=== PATIENT | female | born 1975 | race Caucasian/White ===

== ENCOUNTER 2017-05-17 05:33 | Day surgery (SDC) | payer OTHER ==
[2017-05-11 12:01] LABS: APPEARANCE,URINE CLEAR; BILIRUBIN,URINE NEGATIVE (NEGATIVE); GLUCOSE, URINE NEGATIVE (NEGATIVE); KETONES,URINE NEGATIVE (NEGATIVE); LEUKOCYTE ESTERASE,URINE NEGATIVE (NEGATIVE); NITRITE,URINE NEGATIVE (NEGATIVE); PROTEIN,URINE NEGATIVE (NEGATIVE); URINE SPECIFIC GRAVITY 1.003; UROBILINOGEN,URINE NEGATIVE mg/dL (<2.0)
[2017-05-11 12:56] LABS: HEMOGLOBIN 12.2 g/dL (12.0-15.5); HGB HCT DIFFERENCE 1.6; MEAN CORPUSCULAR HEMOGLOBIN 30.8 pg (27.0-33.4); MEAN CORPUSCULAR HGB CONC 34.9 g/dL (32.0-36.0); MEAN CORPUSCULAR VOLUME 88 fl (80-97); RED BLOOD COUNT 3.95 10^6/uL (3.72-5.28); WHITE BLOOD COUNT 5.7 10^3/uL (4.0-10.5)
[2017-05-11 13:23] LABS: ALANINE AMINOTRANSFERASE 24 U/L (9-52); ALBUMIN 4.7 g/dL (3.5-5.0); ALKALINE PHOSPHATASE 68 U/L (38-126); ANION GAP 11 (5-19); ASPARTATE AMINO TRANSFERASE 21 U/L (14-36); BILIRUBIN,DIRECT 0.4 mg/dL (0.0-0.4); BILIRUBIN,TOTAL 0.4 mg/dL (0.2-1.3); BLOOD UREA NITROGEN 14 mg/dL (7-20); CALCIUM 9.9 mg/dL (8.4-10.2); CARBON DIOXIDE 26 mmol/L (22-30); CHLORIDE 103 mmol/L (98-107); CREATININE RESULT 0.61 mg/dL (0.52-1.25); GLUCOSE 89 mg/dL (75-110); POTASSIUM 3.7 mmol/L (3.6-5.0); SODIUM 140.3 mmol/L (137-145)
[~2017-05-17 05:33] MED LIST: CEFAZOLIN 2 GM/D5W RTU 2 GM/50 ML RTUPB IV PRN; LACTATED RINGERS 1000 ML IV PRN; LIDOCAINE 0.5% INJ-PF (5 MG/ML) 50 ML SDV SUBCUT PRN
[2017-05-17] MEDS ORDERED: FENTANYL CITRATE INJ/PF 100 MCG/2 ML AMPUL ONE ×2 (07:09→11:27)
[2017-05-17] MEDS ORDERED: FENTANYL CITRATE INJ/PF 250 MCG/5 ML AMPULE ONE (07:09)
[2017-05-17] MEDS ORDERED: PROPOFOL INJ 200 MG/20 ML VIAL IV ONE (07:09)
[2017-05-17] MEDS ORDERED: ACETAMINOPHEN 100 ML IV ONE (07:09)
[2017-05-17] MEDS ORDERED: MIDAZOLAM 2 MG/2 ML INJ ONE (07:09)
[2017-05-17] MEDS ORDERED: MORPHINE SULFATE 10 MG/ML INJ ONE (07:10)
[2017-05-17] MEDS ORDERED: BUPIVACAINE HCL 0.25 % INJ/PF (2.5 MG/1 ML) 30 ML VIAL ONE (07:22)
[2017-05-17] MEDS ORDERED: METHYLENE BLUE 50 MG/10 ML AMPULE ONE (07:22)
[2017-05-17] MEDS ORDERED: MORPHINE SULFATE 10 MG/ML INJ IV PRN (08:22)
[2017-05-17] MEDS ORDERED: PROMETHAZINE HCL INJ 25 MG/1 ML VIAL IV PRN ×3 (08:22→11:25)
[2017-05-17] MEDS ORDERED: FENTANYL CITRATE INJ/PF 100 MCG/2 ML AMPUL IV PRN ×3 (08:22)
[2017-05-17] MEDS ORDERED: MEPERIDINE HCL/PF INJ 25 MG/1 ML DISP.SYRIN IV PRN (08:22)
[2017-05-17] MEDS ORDERED: DIPHENHYDRAMINE HCL 50 MG/ML VIAL IV PRN (08:22)
[2017-05-17] MEDS ORDERED: ONDANSETRON HCL INJ/PF 4 MG/2 ML SDV IV PRN ×2 (11:25→13:30)
[2017-05-17] MEDS ORDERED: RINGERS SOLUTION,LACTATED 1,000 ML IV PRN (11:26)
[2017-05-17] MEDS ORDERED: HYDROMORPHONE HCL INJ/PF 2 MG/ML AMPULE IV PRN ×2 (11:47→11:48)
[2017-05-17] MEDS ORDERED: OXYCODONE-ACETAMINOPHEN 5-325 MG TABLET PO PRN (11:48)
[2017-05-17] MEDS ORDERED: IBUPROFEN INJ 800 MG/8 ML VIAL IV ONE (11:50)
[2017-05-17] MEDS ORDERED: DEXAMETHASONE SOD PHOSPHATE INJ 4 MG/1 ML VIAL ONE (11:57)
[2017-05-17] MEDS ORDERED: ONDANSETRON HCL INJ/PF 4 MG/2 ML SDV ONE (11:57)
[2017-05-17] MEDS ORDERED: ROCURONIUM BROMIDE INJ 50 MG/5 ML VIAL IV ONE (11:57)
[2017-05-17] MEDS ORDERED: SUCCINYLCHOLINE CHLORIDE INJ 200 MG/10 ML VIAL ONE (11:57)
--- NOTE | 2017-05-17 12:12 | OPERATIVE REPORT E ---
Operative Report NAME: SAULO OVERTON : 1975 AGE: 41Y DATE OF SURGERY: 05/17/2017 ROOM: PREOPERATIVE DIAGNOSIS: Dysmenorrhea with suspected endometriosis. POSTOPERATIVE DIAGNOSES: 1. Endometriosis. 2. Dysmenorrhea. OPERATION PERFORMED: Robotic total laparoscopic hysterectomy with bilateral salpingectomy and left oophorectomy as well as cystoscopy. SURGEON: FAHDA SINGH M.D. ANESTHESIA: General endotracheal. ESTIMATED BLOOD LOSS: 100 mL. SPECIMEN TO PATHOLOGY: Uterus, bilateral fallopian tubes, and left ovary. FINDINGS: There was diffuse endometriosis on the posterior aspect of the uterus extending down to the posterior cul-de-sac as well as onto the uterosacral ligaments and on the pelvic sidewall more extensively on the right than the left. There was also endometriosis on the surface of the left ovary. There was a physiologic cyst on the right ovary. The anterior cul-de-sac was free of endometriosis. The tissue was somewhat fibrotic and thickened. DESCRIPTION OF PROCEDURE: After discussing risks, benefits, and alternatives of the procedure and obtaining informed consent, patient was taken to the operating room where general anesthesia was achieved. She was positioned in the dorsal lithotomy position, prepped and draped in the standard fashion. John catheter was placed to keep the bladder drained. A speculum was placed in the vagina. The cervix was grasped with a single-toothed tenaculum and serially dilated to allow for passage of the large Vcare uterine manipulator. A stitch was placed on the anterior aspect of the cervix and the manipulator was sewn to the manipulator. Attention was then turned to the patient's abdomen. The umbilical fold was elevated with Allis clamps and 0.25% Marcaine injected locally for anesthesia. An 8 mm skin incision was made. The fascia was grasped and elevated and incised and an 8 mm trocar placed under direct visualization. The abdomen was insufflated. The patient was placed in Trendelenburg and the pelvis surveyed with the findings noted. Right lower quadrant and left lower quadrant robotic trocar were each placed under direct visualization after premedicating with 0.25% Marcaine. A right upper quadrant 5 mm AirSeal trocar was placed under direct visualization. The robot was docked. There was initially some difficulty with the right arm when the robotic scissors were placed. This had to be removed with the trocar. The trocar was replaced. The robotic arm on the right was redocked and a new set of robotic scissors were placed under direct visualization. The fenestrated graspers were placed in the left hand under direct visualization. I then went to the console. The fenestrated graspers were attached to bipolar cautery and the robotic scissors to monopolar cautery. The pelvis was surveyed with the findings noted and the decision was made to do a left oophorectomy in addition to the initially planned procedure. The left fallopian tube was grasped and the distal tip undermined to the level of the uterus with bipolar and monopolar cautery. A defect was created in the mesosalpinx and inferior to the utero-ovarian pedicle. Graspers were then used to cauterize the infundibulopelvic vessels, and these were cut with monopolar scissors. The round ligament was coagulated and cut. A bladder flap was created using a combination of sharp and blunt dissection. Of note, the round was very thickened and the peritoneum was also somewhat thickened. On the patient's right, the fallopian tube was coagulated inferior to the fallopian tube and then cut with monopolar scissors to the level of the uterus. A defect was created in the utero-ovarian pedicle inferior to the ovary. During this time, some peritoneal adhesions to the pelvic sidewall were released. Care was taken to identify the ureter prior to this. The utero-ovarian pedicle was coagulated and cut. The round was coagulated and cut on the patient's right and the bladder flap completed. The uterine arteries were skeletonized. They were coagulated, but not cut initially. The anterior cul-de-sac was entered sharply over the repair device and then the posterior cul-de-sac entered sharply. During this process, the peritoneum was allowed to peel away with the uterus on the posterior aspect to excise as much of it as possible. A small segment of the right uterosacral ligament was also excised during this process as it contained some dense endometriosis. The uterine arteries were then interrupted and the colpotomy completed. The uterus, tubes, and left ovary were delivered into the vagina and removed. A V-Loc suture was passed from the vagina through a trocar up into the peritoneal cavity. The scissors in the surgeon's right hand had been replaced with a needle high lift driver. I grasped the suture with the needle high lift driver. The cuff was closed with the V-Loc device, taking care to incorporate uterosacral ligaments. This was oversewn snf across the cuff. There had been some oozing of the peritoneal surfaces where endometriosis had been resected in along the cuff. After irrigation, FloSeal was applied to this area. Hemostasis was assured under low pressure of 6. The instruments were then removed. The bedside hr assistant grasped the needle by the suture end and removed that with the trocar in the right lower quadrant. The other trocars were then removed as well. I then scrubbed back into the case and performed cystoscopy, which showed the bladder to be intact and no sutures or cautery burn present. The ureteral orifices showed spill of methylene blue bilaterally. The John catheter was replaced. I went back to the patient's abdomen and closed the skin incisions with 3-0 Monocryl followed by Dermabond. The patient was extubated and taken to recovery in stable condition. After extubation and removing the drapes, it was noted that there was some splotching on the patient's left arm where the methylene blue IV site had been. All sponge, needle, lap, and instrument count were correct x2. DICTATING PHYSICIAN: FAHAD SINGH M.D. [id number] PHY#: [id number] ID: [id number] JOB#: [id number] ACCT: [id number] cc:FAHAD SINGH M.D. > MTDD
[2017-05-17] MEDS ORDERED: IBUPROFEN 800 MG in NORMAL SALINE 250 ML IV SCH (14:00)
[2017-05-17] MEDS ORDERED: CEFAZOLIN 2 GM/D5W RTU 2 GM/50 ML RTUPB IV ONE (19:30)
[2017-05-17] MEDS: OXYCODONE-ACETAMINOPHEN 5-325 MG TABLET PO PRN (20:35)
[2017-05-17] MEDS: IBUPROFEN 800 MG in NORMAL SALINE 250 ML IV SCH (22:49)
[2017-05-18] MEDS: IBUPROFEN 800 MG in NORMAL SALINE 250 ML IV SCH (05:47)
[2017-05-18 07:28] LABS: HEMATOCRIT 29.3 % (36.0-47.0); HGB HCT DIFFERENCE 0.7; MEAN CORPUSCULAR HEMOGLOBIN 30.8 pg (27.0-33.4); MEAN CORPUSCULAR HGB CONC 34.2 g/dL (32.0-36.0); MEAN CORPUSCULAR VOLUME 90 fl (80-97); RED BLOOD COUNT 3.25 10^6/uL (3.72-5.28); RED CELL DISTRIBUTION WIDTH 13.3 % (11.5-14.0); WHITE BLOOD COUNT 6.9 10^3/uL (4.0-10.5)
--- NOTE | 2017-05-18 08:32 | DISCHARGE SUMMARY E ---
Discharge Summary NAME: SAULO OVERTON : 1975 AGE: 41Y ADMITTED: 05/17/2017 DISCHARGED: 05/18/2017 INDICATION FOR ADMISSION: Dysmenorrhea and pelvic pain with suspected endometriosis. HOSPITAL COURSE: The patient is a 41-year-old female with longstanding worsening dysmenorrhea and pelvic pain. She underwent robotic total laparoscopic hysterectomy with bilateral salpingectomy and left oophorectomy as well as cystoscopy on 05/17/2017. She did have a significant amount of endometriosis at the time of surgery. Her ureters were patent at the time of cystoscopy. Her postop course was unremarkable. She had good urine output. Her postop hemoglobin and hematocrit were 10 and 29.3. She was ambulating, tolerating p.o., and had voided without difficulty by the time of discharge. DISCHARGE MEDICATIONS: 1. Percocet 5 mg/325 mg 1 to 2 p.o. q.i.d. p.r.n., #40, no refills. 2. Motrin 800 mg 1 p.o. t.i.d. p.r.n., #50, no refills. DISCHARGE INSTRUCTIONS: She is advised to be on pelvic rest and light activity. She was given routine postop instructions. She will follow up in clinic in a week or so, sooner should problems arise. DICTATING PHYSICIAN: FAHAD SINGH M.D. [id number] PHY#: [id number] ID: [id number] JOB#: [id number] ACCT: [id number] cc:FAHAD SINGH M.D. >
[2017-05-18 09:43] VITALS: BP 106/81
[2017-05-18] MEDS: OXYCODONE-ACETAMINOPHEN 5-325 MG TABLET PO PRN (09:51)
== END 2017-05-18 10:20 | disposition home or self-care (01) ==
LOC: OROUT 05:33 → 2S 12:21 → OROUT 05-18 10:20
PROVIDERS: ATTEND Specialist
PROC: 0UTC4ZZ Resection of Cervix, Percutaneous Endoscopic Approach (ICD-10-PCS; 2017-05-17)
PROC: 0UT14ZZ Resection of Left Ovary, Percutaneous Endoscopic Approach (ICD-10-PCS; 2017-05-17)
PROC: 0UT74ZZ Resection of Bilateral Fallopian Tubes, Percutaneous Endoscopic Approach (ICD-10-PCS; 2017-05-17)
PROC: 0UT94ZZ Resection of Uterus, Percutaneous Endoscopic Approach (ICD-10-PCS; principal; 2017-05-17 07:30)
DX: N94.6 Dysmenorrhea, unspecified (principal); N72 Inflammatory disease of cervix uteri; N80.1 Endometriosis of ovary; N80.3 Endometriosis of pelvic peritoneum; N80.0 Endometriosis of uterus; E28.2 Polycystic ovarian syndrome; K66.0 Peritoneal adhesions (postprocedural) (postinfection); Z79.899 Other long term (current) drug therapy; Z87.891 Personal history of nicotine dependence
CPT/HCPCS: 86900; 86901; 36415 ×3; 86850; 84132; 85027 ×2; 81025; 80053; 81001; 88307 ×2; 58571; J2250; J3490; J1100; J3010 ×2; J2270; J1170; J0330; J2405; J7050 ×2; J7120; J2704; J0690; J0131; J1741 ×2; Q9968; 840